=== PATIENT | male | born 1995 | race American Indian/Alaskan Native ===

== ENCOUNTER 2016-06-07 18:42 | Emergency (ER) | payer SELFPAY | END 2016-06-08 04:14 | disposition left against medical advice (07) | LOC: ED 18:42 | DX: Z48.02 Encounter for removal of sutures (principal); Z53.21 Procedure and treatment not carried out due to patient leaving prior to being seen by health care provider ==

== ENCOUNTER 2021-07-15 10:25 | Emergency (ER) | payer SELFPAY ==
[2021-07-15] MEDS ORDERED: SODIUM CHLORIDE 0.9% 1000 ML 1,000 ML IV ONE ×2 (11:24→13:32)
--- NOTE | 2021-07-15 11:28 | Emergency Department Report ---
ED General Adult HPI - General Chief complaint: Syncope Stated complaint: WEAK/FAINTED Time Seen by Provider: 07/15/21 11:11 Source: EMS Mode of arrival: Stretcher Limitations: No Limitations - History of Present Illness Initial comments: Patient presents with complaints of an episode of unresponsiveness that was witnessed by his coworkers. Was told it lasted a few minutes and was without convulsive jerking, bowel/urinary incontinence, tongue or lip biting. Patient reportedly had his eyes open during this time. He states he could hear his coworkers calling out to him during the episode. Denies any focal numbness, weakness, VALDOVINOS, CP, SOB, palpitations before or after the episode. Also denies any vomiting, diarrhea, hematochezia, bloody or black tarry stools. States he had 3 layers of clothes on and was working in a hot room. States he was sweating a lot and then felt dizzy before the episode. Severity scale (0 -10): 0 - Related Data Allergies Allergy/AdvReac Type Severity Reaction Status Date / Time No Known Allergies Allergy Verified 07/15/21 10:36 ED Review of Systems ROS: Stated complaint: WEAK/FAINTED Other details as noted in HPI Comment: All other systems reviewed and negative Constitutional: denies: chills, fever ED Past Medical Hx - Past Medical History Previous Medical History?: No - Surgical History Past Surgical History?: No - Social History Smoking Status: Never Smoker ED Physical Exam - General Limitations: No Limitations General appearance: alert, in no apparent distress - Head Head exam: Present: atraumatic, normocephalic - Eye Eye exam: Present: PERRL, EOMI - ENT ENT exam: Present: mucous membranes moist, other (airway patent) - Neck Neck exam: Present: other (supple; no JVD) - Respiratory Respiratory exam: Present: other (good air entry, nml I:E, CTAB, no use of KOFI) - Cardiovascular Cardiovascular Exam: Present: regular rate. Absent: rubs, gallop - GI/Abdominal GI/Abdominal exam: Present: soft, normal bowel sounds. Absent: distended, tenderness - Extremities Exam Extremities exam: Present: full ROM. Absent: tenderness - Back Exam Back exam: Present: full ROM. Absent: tenderness - Neurological Exam Neurological exam: Present: alert, oriented X3, CN II-XII intact. Absent: motor sensory deficit - Skin Skin exam: Present: warm, normal color ED Course Vital Signs 07/15/21 07/15/21 07/15/21 10:36 10:53 10:54 Temperature 98.7 F Pulse Rate 69 61 Pulse Rate [ Lying] Pulse Rate [ Sitting] Pulse Rate [ Standing] Respiratory 16 18 Rate Blood Pressure Blood Pressure [Lying] Blood Pressure 129/65 [Right] Blood Pressure [Sitting] Blood Pressure [Standing] O2 Sat by Pulse 98 99 100 Oximetry 07/15/21 07/15/21 07/15/21 11:01 11:15 11:31 Temperature Pulse Rate 68 62 73 Pulse Rate [ Lying] Pulse Rate [ Sitting] Pulse Rate [ Standing] Respiratory 19 18 19 Rate Blood Pressure 95/55 105/63 91/64 Blood Pressure [Lying] Blood Pressure [Right] Blood Pressure [Sitting] Blood Pressure [Standing] O2 Sat by Pulse 97 97 97 Oximetry 07/15/21 07/15/21 07/15/21 11:45 12:00 12:31 Temperature Pulse Rate 71 85 Pulse Rate [ Lying] Pulse Rate [ Sitting] Pulse Rate [ Standing] Respiratory 20 16 Rate Blood Pressure 108/57 110/58 108/50 Blood Pressure [Lying] Blood Pressure [Right] Blood Pressure [Sitting] Blood Pressure [Standing] O2 Sat by Pulse 98 100 98 Oximetry 07/15/21 07/15/21 07/15/21 12:45 13:00 13:15 Temperature Pulse Rate Pulse Rate [ Lying] Pulse Rate [ Sitting] Pulse Rate [ Standing] Respiratory Rate Blood Pressure 101/66 112/53 93/52 Blood Pressure [Lying] Blood Pressure [Right] Blood Pressure [Sitting] Blood Pressure [Standing] O2 Sat by Pulse 99 98 98 Oximetry 07/15/21 07/15/21 07/15/21 13:29 13:31 13:45 Temperature Pulse Rate 68 80 Pulse Rate [ 61 Lying] Pulse Rate [ 62 Sitting] Pulse Rate [ 115 H Standing] Respiratory 13 12 Rate Blood Pressure 129/68 129/68 Blood Pressure 111/53 [Lying] Blood Pressure [Right] Blood Pressure 103/66 [Sitting] Blood Pressure 129/68 [Standing] O2 Sat by Pulse 100 100 Oximetry 07/15/21 07/15/21 07/15/21 14:01 14:15 14:31 Temperature Pulse Rate 71 66 72 Pulse Rate [ Lying] Pulse Rate [ Sitting] Pulse Rate [ Standing] Respiratory 21 15 16 Rate Blood Pressure 129/68 129/68 129/68 Blood Pressure [Lying] Blood Pressure [Right] Blood Pressure [Sitting] Blood Pressure [Standing] O2 Sat by Pulse 100 98 96 Oximetry 07/15/21 14:45 Temperature Pulse Rate 66 Pulse Rate [ Lying] Pulse Rate [ Sitting] Pulse Rate [ Standing] Respiratory 15 Rate Blood Pressure 129/68 Blood Pressure [Lying] Blood Pressure [Right] Blood Pressure [Sitting] Blood Pressure [Standing] O2 Sat by Pulse 95 Oximetry ED Medical Decision Making - Lab Data Result diagrams: 07/15/21 11:15 07/15/21 11:15 Laboratory Tests 07/15/21 07/15/21 07/15/21 11:15 11:15 12:07 WBC 8.5 RBC 5.58 H Hgb 15.9 H Hct 47.4 H MCV 85 MCH 29 MCHC 34 RDW 13.6 Plt Count 177 Lymph % (Auto) 23.6 [place] % (Auto) 9.6 H Eos % (Auto) 3.4 Baso % (Auto) 0.6 Lymph # (Auto) 2.0 [place] # (Auto) 0.8 Eos # (Auto) 0.3 Baso # (Auto) 0.1 Seg Neutrophils % 62.8 Seg Neutrophils # 5.4 Sodium 141 Potassium 3.7 Chloride 104.0 Carbon Dioxide 29 Anion Gap 12 BUN 8 L Creatinine 1.2 Estimated GFR > 60 BUN/Creatinine Ratio 7 Glucose 70 L Calcium 8.7 Total Bilirubin 0.60 AST 21 ALT 19 Alkaline Phosphatase 48 Total Creatine Kinase 236 H CK-MB (CK-2) 2.9 CK-MB (CK-2) Rel Index 1.2 Troponin T < 0.010 Total Protein 5.2 L Albumin 3.5 L Albumin/Globulin Ratio 2.1 Urine Color Yellow Urine Turbidity Clear Urine pH 6.0 Ur Specific [place] 1.025 Urine Protein <15 mg/dl Urine Glucose (UA) Neg Urine Ketones Neg Urine Blood Neg Urine Nitrite Neg Urine Bilirubin Neg Urine Urobilinogen < 2.0 Ur Leukocyte Esterase Neg Urine WBC (Auto) 1.0 Urine RBC (Auto) < 1.0 U Epithel Cells (Auto) < 1.0 Urine Mucus 3+ Urine Opiates Screen Urine Methadone Screen Ur Barbiturates Screen Ur Phencyclidine Scrn Ur Amphetamines Screen U Benzodiazepines Scrn Urine Cocaine Screen U Marijuana (THC) Screen Drugs of Abuse Note 07/15/21 12:07 WBC RBC Hgb Hct MCV MCH MCHC RDW Plt Count Lymph % (Auto) [place] % (Auto) Eos % (Auto) Baso % (Auto) Lymph # (Auto) [place] # (Auto) Eos # (Auto) Baso # (Auto) Seg Neutrophils % Seg Neutrophils # Sodium Potassium Chloride Carbon Dioxide Anion Gap BUN Creatinine Estimated GFR BUN/Creatinine Ratio Glucose Calcium Total Bilirubin AST ALT Alkaline Phosphatase Total Creatine Kinase CK-MB (CK-2) CK-MB (CK-2) Rel Index Troponin T Total Protein Albumin Albumin/Globulin Ratio Urine Color Urine Turbidity Urine pH Ur Specific [place] Urine Protein Urine Glucose (UA) Urine Ketones Urine Blood Urine Nitrite Urine Bilirubin Urine Urobilinogen Ur Leukocyte Esterase Urine WBC (Auto) Urine RBC (Auto) U Epithel Cells (Auto) Urine Mucus Urine Opiates Screen Negative Urine Methadone Screen Negative Ur Barbiturates Screen Negative Ur Phencyclidine Scrn Negative Ur Amphetamines Screen Negative U Benzodiazepines Scrn Negative Urine Cocaine Screen Negative U Marijuana (THC) Screen Positive Drugs of Abuse Note Disclamer EKG: HR 60, SR, nml intervals, no significant ST changes in contiguous leads CT head: no acute intracranial process CXR: no acute cardiopulmonary process repeat accucheck 88 - Medical Decision Making Diff dz: likely 2/2 heat exhaustion. ICH, pneumonia, pneumothorax, anemia, persistent arrhythmia ruled out. ACS, ischemic CVA, seizure unlikely. Received NS 2 L bolus x 1. Patient feels back to his baseline. Critical care attestation.: If time is entered above; I have spent that time in minutes in the direct care of this critically ill patient, excluding procedure time. ED Disposition Clinical Impression: Heat exhaustion Disposition: 01 HOME / SELF CARE / HOMELESS Is pt being admited?: No Does the pt Need Aspirin: No Condition: Stable Instructions: Heat Exhaustion Additional Instructions: Follow up with your regular doctor within 2 - 4 days. Return to the ER if your symptoms worsen. Referrals: PRIMARY CARE, [Primary Care Provider] - 3-5 Days Time of Disposition: 14:00
[2021-07-15 11:58] LABS: Basophils # (Auto) 0.1 K/mm3 (0.0-0.1); Basophils % (Auto) 0.6 % (0.0-1.8); Eosinophils # (Auto) 0.3 K/mm3 (0.0-0.4); Eosinophils % (Auto) 3.4 % (0.0-4.3); Hematocrit 47.4 % (35.5-45.6); Hemoglobin 15.9 gm/dl (11.8-15.2); Lymphocytes % (Auto) 23.6 % (13.4-35.0); Mean Corpuscular HGB Conc 34 % (32-34); Mean Corpuscular Volume 85 fl (84-94); Monocytes # (Auto) 0.8 K/mm3 (0.0-0.8); Monocytes % (Auto) 9.6 % (0.0-7.3); Platelet Count 177 K/mm3 (140-440); Red Blood Count 5.58 M/mm3 (3.65-5.03); Red Cell Distribution Width 13.6 % (13.2-15.2)
--- NOTE | 2021-07-15 12:10 | XRay Report ---
CHEST 1 VIEW 07/15/2021 11:01 AM INDICATION / CLINICAL INFORMATION: unresponsive. COMPARISON: None available. FINDINGS: SUPPORT DEVICES: None. HEART / MEDIASTINUM: No significant abnormality. LUNGS / PLEURA: No significant pulmonary or pleural abnormality. No pneumothorax. ADDITIONAL FINDINGS: No significant additional findings. IMPRESSION: 1. No acute findings. Signer Name: Ghanshyam Krause Jr, MD Signed: 07/15/2021 12:03 PM Workstation Name: [id number]
[2021-07-15 12:19] LABS: Bilirubin,Urine NEG (Negative); Blood,Urine NEG (Negative); Color,Urine Yellow (Yellow); Mucus,Urine 3+ /HPF; Protein,Urine <15 mg/dL mg/dL (Negative); RBC,Urine < 1.0 /HPF (0.0-6.0); Urobilinogen,Urine < 2.0 mg/dL (<2.0)
[2021-07-15 12:19] LABS: Creatine Kinase MB 2.9 ng/mL (0.0-4.0)
[2021-07-15 12:21] LABS: Alanine Aminotransferase 19 units/L (7-56); Albumin 3.5 g/dL (3.9-5); BUN/Creatinine Ratio 7; Blood Urea Nitrogen 8 mg/dL (9-20); Calcium 8.7 mg/dL (8.4-10.2); Hemolysis Index 21
[2021-07-15 12:24] LABS: Amphetamine Screen,Urine Negative; Benzodiazepines Screen,Urine Negative; Cocaine Screen,Urine Negative; Methadone Screen,Urine Negative; Opiate Screen,Urine Negative
--- NOTE | 2021-07-15 12:28 | Cat Scan Report ---
CT head/brain wo con INDICATION / CLINICAL INFORMATION: 25 years Male; Unresponsive. TECHNIQUE: Routine CT head without contrast. All CT scans at this location are performed using CT dos e reduction for ALARA by means of automated exposure control. COMPARISON: None. FINDINGS: BRAIN / INTRACRANIAL CONTENTS: No acute hemorrhage, mass effect, midline shift, hydrocephalus, or acu te, large territorial infarct. No signs of significant atrophy or chronic infarct. No significant whi te matter abnormality seen. CRANIOCERVICAL JUNCTION: No significant abnormality. ORBITS: No significant abnormality of visualized orbits. SINUSES / MASTOIDS: Visualized paranasal sinuses and mastoid air cells are essentially clear. ADDITIONAL FINDINGS: Prominent soft tissue is seen in the roof of the nasopharynx, presumably related to reactive adenoidal tissue. Please clinically correlate. IMPRESSION: 1. No focal mass, hemorrhage, hydrocephalus, or acute, large territorial infarct. Signer Name: Lalo Avalos MD, III Signed: 07/15/2021 12:23 PM Workstation Name: [email or web address]
[2021-07-15 12:38] LABS: Cannabinoid Screen,Urine Positive
[2021-07-15 14:37] VITALS: BP 129/68
--- NOTE | 2021-07-16 10:07 | Electrocardiograph Report ---
[facility] Test Date: 2021-07-15 Test Time: 10:51:57 Pat Name: BUZZ MARIE Department: Room: Gender: M [employer]ity [employer]st: ANTONIO : 1995 Requested By: ZHAO WALLER Order Number: [id number] Reading MD: Milan Nichols Measurements Intervals [place] Rate: 60 P: 64 NM: 119 QRS: 58 QRSD: 88 T: 26 QT: 373 QTc: 374 Interpretive Statements Sinus rhythm No previous ECG available for comparison Electronically Signed On 07-16-2021 10:07:05 EDT by Milan Nichols
== END 2021-07-15 14:58 | disposition home or self-care (01) ==
LOC: ED 10:25
DX: T67.5XXA Heat exhaustion, unspecified, initial encounter (principal); Z79.899 Other long term (current) drug therapy; X58.XXXA Exposure to other specified factors, initial encounter; Y93.89 Activity, other specified; Y92.89 Other specified places as the place of occurrence of the external cause; Y99.8 Other external cause status
CPT/HCPCS: 36415; 70450; 71045; 80053; 80307; 81001; 82550; 82553; 82962; 84484; 85025; 93005; 96360; 96361; 99285; J7030; 96375